=== PATIENT | female | born 1940 | race Caucasian/White ===

== ENCOUNTER 2016-12-22 11:09 | Emergency (ER) | payer MEDICARE, OTHER ==
[2016-12-22 13:28] LABS: HEMOGLOBIN 14.2 gm/dl (12.3-15.3); RED BLOOD COUNT 4.54 M/UL (4.00-5.10); WHITE BLOOD COUNT 12.5 K/UL (4.5-11.0)
[2016-12-22 13:40] LABS: BUN/CREATININE RATIO 24 (0-10)
[2017-04-21] MEDS ORDERED: MEDROL4 MG PO (16:53)
[2017-04-23] MEDS ORDERED: VIBRAMYCIN 100100 MG PO (11:41)
== END 2016-12-22 17:00 | disposition home or self-care (01) ==
LOC: ER1 11:09
PROVIDERS: Physician Assistant
DX: C25.9 Malignant neoplasm of pancreas, unspecified (principal); E87.1 Hypo-osmolality and hyponatremia; E11.9 Type 2 diabetes mellitus without complications; I10 Essential (primary) hypertension; J44.9 Chronic obstructive pulmonary disease, unspecified; Z87.891 Personal history of nicotine dependence; Z88.0 Allergy status to penicillin; Z88.2 Allergy status to sulfonamides
CPT/HCPCS: 36415; 71010; 80053; 81001; 82150; 82550; 82553; 83690; 83874; 84484; 85025; 93005; 99285

== ENCOUNTER 2017-01-14 09:14 | Observation (INO) | payer MEDICARE, OTHER ==
[~2017-01-14] VITALS: Ht 170.2 cm; Wt 63.5 kg
[2017-01-14 11:27] LABS: HEMOGLOBIN 12.1 gm/dl (12.3-15.3); RED BLOOD COUNT 3.79 M/UL (4.00-5.10); WHITE BLOOD COUNT 8.7 K/UL (4.5-11.0)
[2017-01-14] MEDS ORDERED: PLAVIX75 MG PO (16:55)
[2017-01-14] MEDS ORDERED: LOPRESSOR 25 MG25 MG PO (16:55)
[2017-01-14] MEDS ORDERED: ATIVAN0.5 MG PO (16:57)
[2017-01-14] MEDS ORDERED: K-DUR TAB 20 M20 MEQ PO (17:06)
[2017-01-14] MEDS ORDERED: LASIX40 MG PO (17:07)
[2017-01-14] MEDS ORDERED: VITAMIN B-1000 MCG/M IM (17:08)
[2017-01-14] MEDS ORDERED: XELODA500 MG PO (17:11)
[2017-01-14] MEDS ORDERED: SPIRIVA18 MCG INH (17:11)
[2017-01-14] MEDS ORDERED: SYMBICORT 16010.2 GM INH (17:12)
[2017-01-14] MEDS ORDERED: IPRAT-ALBUT 0.5-3 ML INH (17:13)
[2017-01-15 06:36] LABS: HEMOGLOBIN 13.4 gm/dl (12.3-15.3); RED BLOOD COUNT 4.15 M/UL (4.00-5.10)
[2017-01-15 06:38] LABS: WHITE BLOOD COUNT 12.3 K/UL (4.5-11.0)
[2017-04-21] MEDS ORDERED: MEDROL4 MG PO (16:53)
[2017-04-23] MEDS ORDERED: VIBRAMYCIN 100100 MG PO (11:41)
== END 2017-01-15 14:19 | disposition home or self-care (01) ==
LOC: ER1 09:14 → MED SURG 4 14:40 → ZEROF 14:40 → MED SURG 4 16:37
PROVIDERS: Physician Assistant; Physician Assistant Medical; ADMIT Internal Medicine
DX: I50.43 Acute on chronic combined systolic (congestive) and diastolic (congestive) heart failure (principal); I11.0 Hypertensive heart disease with heart failure; F41.9 Anxiety disorder, unspecified; E78.5 Hyperlipidemia, unspecified; E11.9 Type 2 diabetes mellitus without complications; Z85.07 Personal history of malignant neoplasm of pancreas; Z90.2 Acquired absence of lung [part of]; Z86.73 Personal history of transient ischemic attack (TIA), and cerebral infarction without residual deficits; Z79.02 Long term (current) use of antithrombotics/antiplatelets; Z79.899 Other long term (current) drug therapy; Z88.0 Allergy status to penicillin; Z88.2 Allergy status to sulfonamides; Z87.891 Personal history of nicotine dependence
CPT/HCPCS: 36415; 36600; 51702; 71010; 80048; 80053; 81001; 82550; 82553; 82803; 83605; 83735; 83874; 83880; 84439; 84443; 84484; 85025; 87040; 93005; 94640; 94664; 96361; 96374; 96375; 99285; G0378; J1940; J2930; J7050; Q9963

== ENCOUNTER 2017-01-23 06:19 | Emergency (ER) | payer MEDICARE, OTHER ==
[~2017-01-23 06:19] MED LIST: ATIVAN0.5 MG PO; IPRAT-ALBUT 0.5-3 ML INH; K-DUR TAB 20 M20 MEQ PO; LASIX40 MG PO; LOPRESSOR 25 MG25 MG PO; PLAVIX75 MG PO; SPIRIVA18 MCG INH; SYMBICORT 16010.2 GM INH; VITAMIN B-1000 MCG/M IM; XELODA500 MG PO
[2017-01-23 09:13] LABS: HEMOGLOBIN 11.3 gm/dl (12.3-15.3); RED BLOOD COUNT 3.44 M/UL (4.00-5.10); WHITE BLOOD COUNT 13.2 K/UL (4.5-11.0)
[2017-04-21] MEDS ORDERED: MEDROL4 MG PO (16:53)
[2017-04-23] MEDS ORDERED: VIBRAMYCIN 100100 MG PO (11:41)
== END 2017-01-23 10:35 | disposition home or self-care (01) ==
LOC: ER1 06:19
PROVIDERS: Physician Assistant
DX: S00.83XA Contusion of other part of head, initial encounter (principal); S00.31XA Abrasion of nose, initial encounter; S40.812A Abrasion of left upper arm, initial encounter; I10 Essential (primary) hypertension; J44.9 Chronic obstructive pulmonary disease, unspecified; Z88.0 Allergy status to penicillin; Z88.2 Allergy status to sulfonamides; C25.9 Malignant neoplasm of pancreas, unspecified; W18.39XA Other fall on same level, initial encounter; Y92.002 Bathroom of unspecified non-institutional (private) residence as the place of occurrence of the external cause; Z79.02 Long term (current) use of antithrombotics/antiplatelets; Z79.899 Other long term (current) drug therapy; N39.0 Urinary tract infection, site not specified
CPT/HCPCS: 36415; 70450; 71010; 72125; 80053; 81001; 82550; 82553; 82962; 83874; 84484; 85025; 87077; 87086; 87186; 93005; 96360; 99285